=== PATIENT | male | born 1945 | race Caucasian/White ===

== ENCOUNTER 2022-01-30 19:36 | Inpatient (IN) ==
[2022-01-30 20:34] LABS: Basophils # 0.1 K/mcL (0.0-0.2); Basophils % 0.5 %; Eosinophils # 0.2 K/mcL (0.0-0.6); Eosinophils % 1.6 %; Hematocrit 46.3 % (37.5-50.1); Hemoglobin 15.2 g/dL (12.9-16.9); Immature Granulocytes % 0.2 % (0-4); Lymphocytes # 2.9 K/mcL (0.6-4.6); Lymphocytes % 28.1 %; Mean Corpuscular HGB Conc 32.8 g/dL (31.6-35.5); Mean Corpuscular Hemoglobin 29.1 pg (28.0-33.3); Mean Corpuscular Volume 88.7 fL (83.0-100.0); Mean Platelet Volume 11.9 fL (9.4-12.4); Monocytes # 1.1 K/mcL (0.0-1.3); Monocytes % 10.7 %; Neutrophils # 6.2 K/mcL (1.6-8.9); Platelet Count 195 K/mcL (140-400); Red Blood Count 5.22 M/mcL (4.19-5.50); Red Cell Distribution Width 13.8 % (11.5-14.5); Segmented Neutrophils % 58.9 %; White Blood Count 10.5 K/mcL (4.3-11.1)
[2022-01-30] MEDS ORDERED: *HR* Heparin 5,000 UNIT/ML VIAL IVP ONE (20:37)
[2022-01-30] MEDS ORDERED: *HR* Heparin 5,000 UNIT/ML VIAL IVP PRN ×2 (20:37)
[2022-01-30 20:41] LABS: INR 1.2
[2022-01-30 20:43] LABS: Activated Partial Thrombo Time 34.6 Seconds (26.0-36.0)
[2022-01-30] MEDS ORDERED: Heparin 25,000UNIT/250ML 1/2NS 25,000 UNIT/250 ML IV.SOLN IVC SCH (20:45)
[2022-01-30] MEDS ORDERED: DilTIAZem 50 MG/50 ML IV.SOLN IVC SCH (20:45)
[2022-01-30 20:51] LABS: Calcium 9.1 mg/dL (8.6-10.3); Potassium 3.8 mEq/L (3.5-5.1)
[2022-01-30 20:52] LABS: Troponin I 0.03 ng/mL (< 0.04)
[2022-01-30 21:05] LABS: Thyroid Stimulating Hormone 4.9 mcIU/mL (0.340-5.600)
[2022-01-30 21:56] LABS: Magnesium 1.9 mg/dL (1.6-2.6)
[2022-01-30] MEDS ORDERED: Acetaminophen 325 MG TABLET PO PRN (22:16)
[2022-01-30] MEDS ORDERED: Naloxone 0.4 MG/ML INJ IVP PRN (22:16)
[2022-01-30] MEDS ORDERED: Ondansetron ODT 4 MG TAB.RAPDIS SL PRN (22:16)
[2022-01-30] MEDS ORDERED: *HR* OxyCODONE Immed Rel 5 MG TABLET PO PRN (22:16)
[2022-01-30] MEDS ORDERED: *HR* HYDROcodone/Acet 5/325 mg TABLET PO PRN (22:16)
[2022-01-31] MEDS ORDERED: Furosemide 20 MG/2 ML VIAL IVP ONE (01:24)
[2022-01-31] MEDS: DilTIAZem 50 MG/50 ML IV.SOLN IVC SCH ×3 (03:07→06:41)
[2022-01-31 05:05] LABS: Hematocrit 45.3 % (37.5-50.1); Mean Corpuscular HGB Conc 33.1 g/dL (31.6-35.5); Mean Corpuscular Hemoglobin 29.4 pg (28.0-33.3); Mean Corpuscular Volume 88.8 fL (83.0-100.0); Mean Platelet Volume 12.2 fL (9.4-12.4); Platelet Count 194 K/mcL (140-400); Red Cell Distribution Width 13.8 % (11.5-14.5); White Blood Count 9.8 K/mcL (4.3-11.1)
[2022-01-31] MEDS ORDERED: *HR* Metoprolol 5 MG/5 ML VIAL IVP ONE ×2 (05:10→16:27)
[2022-01-31 05:31] LABS: Calcium 9.1 mg/dL (8.6-10.3); Chol/HDL Ratio 3.3 (0-4.9); Magnesium 1.9 mg/dL (1.6-2.6); Phosphorous 3.6 mg/dL (2.7-4.5); Potassium 3.3 mEq/L (3.5-5.1)
[2022-01-31] MEDS ORDERED: Metoprolol XL (24 HR) Succ 25 MG TAB.ER.24H PO SCH (09:00)
[2022-01-31] MEDS: *HR* Enoxaparin 100 MG/ML SYRINGE SQ SCH (13:35)
[2022-01-31] MEDS: Metoprolol XL (24 HR) Succ 50 MG TAB.ER.24H PO SCH (13:35)
[2022-01-31] MEDS: Melatonin 3 MG TABLET PO PRN (21:31)
[2022-01-31] MEDS: TICAGRELOR 60 MG PO SCH (21:31)
[2022-02-01] MEDS: *HR* Enoxaparin 100 MG/ML SYRINGE SQ SCH ×2 (01:40→11:27)
[2022-02-01 03:37] LABS: Hematocrit 45.2 % (37.5-50.1); Hemoglobin 14.5 g/dL (12.9-16.9); Mean Corpuscular HGB Conc 32.1 g/dL (31.6-35.5); Mean Corpuscular Volume 90.4 fL (83.0-100.0); Mean Platelet Volume 12.5 fL (9.4-12.4); Platelet Count 189 K/mcL (140-400); Red Cell Distribution Width 14.2 % (11.5-14.5); White Blood Count 8.1 K/mcL (4.3-11.1)
[2022-02-01 04:12] LABS: Calcium 8.5 mg/dL (8.6-10.3); Potassium 4.3 mEq/L (3.5-5.1)
[2022-02-01] MEDS: Metoprolol XL (24 HR) Succ 50 MG TAB.ER.24H PO SCH (07:51)
[2022-02-01] MEDS: TICAGRELOR 60 MG PO SCH ×2 (07:52→21:34)
[2022-02-01] MEDS ORDERED: Metoprolol XL (24 HR) Succ 25 MG TAB.ER.24H PO SCH (09:00)
[2022-02-01] MEDS ORDERED: Metoprolol XL (24 HR) Succ 50 MG TAB.ER.24H PO SCH (09:00)
[2022-02-01] MEDS ORDERED: *HR* Digoxin 0.5 MG/2 ML AMPUL IVP ONE (10:00)
[2022-02-01] MEDS: Furosemide 20 MG TABLET PO SCH (11:27)
[2022-02-01] MEDS ORDERED: *HR* Digoxin 0.5 MG/2 ML AMPUL IVP SCH ×3 (16:00→22:00)
[2022-02-01] MEDS: Melatonin 3 MG TABLET PO PRN (21:36)
[2022-02-02] MEDS: *HR* Enoxaparin 100 MG/ML SYRINGE SQ SCH (00:28)
[2022-02-02 06:00] LABS: Calcium 8.8 mg/dL (8.6-10.3); Potassium 3.9 mEq/L (3.5-5.1)
[2022-02-02] MEDS: Furosemide 20 MG TABLET PO SCH (08:23)
[2022-02-02] MEDS: Metoprolol XL (24 HR) Succ 50 MG TAB.ER.24H PO SCH (08:23)
[2022-02-02] MEDS: TICAGRELOR 60 MG PO SCH (08:24)
[2022-02-02] MEDS ORDERED: *HR* Digoxin 0.125 MG TABLET PO SCH (09:00)
[2022-02-02 10:49] VITALS: BP 106/79; PULSE 74; TEMP 98.6; O2SAT 93
== END 2022-02-02 12:36 | disposition home or self-care (01) | DRG 308 ==
LOC: 3NENU 19:36 → EMEROOARM 19:36 → SUATTDRO 22:33 → 3NENU 23:26 → SUATTDRO 01-31 17:15
PROVIDERS: ADMIT Internal Medicine; ATTEND Internal Medicine